=== PATIENT | female | born 1985 | race Caucasian/White ===

== ENCOUNTER 2017-05-22 04:41 | Inpatient (IN) | payer OTHER ==
[~2017-05-22] VITALS: Ht 162.6 cm; Wt 73.0 kg
[2017-05-22 05:34] LABS: ABSOLUTE BASOPHIL COUNT 0 /CUMM (0.0-0.2); ABSOLUTE EOSINOPHIL COUNT 0.2 /CUMM (0.0-0.7); ABSOLUTE GRANULOCYTE CT 8.3 /CUMM (1.4-6.5); ABSOLUTE LYMPH COUNT 2.2 /CUMM (1.2-3.4); ABSOLUTE MONOCYTE COUNT 0.7 /CUMM (0.10-0.60); BASOPHIL % 0.1 % (0.0-2.0); EOSINOPHIL % 1.8 % (0-5); GRANULOCYTE % 73.1 % (42.2-75.2); HEMATOCRIT 32.2 % (37-47); MEAN CORPUSCULAR HGB 30.2 PG (27.0-31.0); MEAN CORPUSCULAR HGB CONC 33.5 G/DL (33.0-37.0); MEAN CORPUSCULAR VOLUME 90.2 FL (81.0-99.0); PLATELET COUNT 143 /CUMM (130-400); RBC DISTRIBUTION WIDTH 13.9 % (11.5-14.5); RED BLOOD CELL CT 3.57 /CUMM (4.20-5.40); WHITE BLOOD CELL COUNT 11.4 /CUMM (4.8-10.8)
--- NOTE | 2017-05-22 07:46 | History & Physical ---
General Information and [facility] MD Statement: I have seen and personally examined LYLA STEWART and documented this H&P. The patient is a 31 year old female at [37] weeks and [5] days gestation who presented with a chief complaint of [SROM]. Source of Information: patient Exam Limitations: no limitations History of Present Illness: 31 year old female at 37 and 5 weeks who presents with spontaneous rupture of membranes at 3 o'clock in the morning. The fetus has been in breech presentation. She is a late transfer of care at 37 and 4 weeks yesterday. Her first visit to the office was yesterday. She just traveled from [place] a few days ago as her is deployed and her mother lives in [place]. She plans to return to [place] June 25. has been remarkable for history of labor. She reports that she was admitted to the hospital at 28 weeks and was observed for 1 week. She received magnesium and steroids. 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 EENTM: Reports: no symptoms. Cardiovascular: Reports: no symptoms. Respiratory: Reports: no symptoms. GI: Reports: no symptoms. Genitourinary: Reports: no symptoms. Musculoskeletal: Reports: no symptoms. Skin: Reports: no symptoms. Neurological/Psychological: Reports: no symptoms. Hematologic/Endocrine: Reports: no symptoms. Immunologic/Allergic: Reports: no symptoms. All Other Systems: Reviewed and Negative Exam & Diagnostic Data Last 24 Hrs of Vital Signs/I&O Intake & Output 05/22 0800 05/22 0000 05/21 1600 Intake Total Output Total Balance Patient 161 lb Weight Obstetric Exam Wgt Gained During : 20 Pelvimetry: na Dilation (cm): 2 Effacement (%): 50 Station: -4 Membranes: SROM Fluid: light meconium Fundal Height (cm): 37 Multiple Gestation? No Contractions: q5min Infant #1 - FHR Baseline: 120 Category: 1 Estimated Weight: 6 pounds Presentation: Breech Patient for Induction? No Physical Exam General Appearance Alert, Oriented X3, Cooperative, No Acute Distress Skin No Rashes, No Breakdown, No Significant Lesion Cardiovascular Regular Rate, Normal S1, Normal S2 Lungs Clear to Auscultation, Normal Air Movement Abdomen Soft, gravid Neurological Normal Gait, Normal Speech, Strength at 5/5 X4 Ext Reproductive (FEMALE) Normal female genitalia Labs Blood Type & Rh: o pos Antibody Screen: neg Hct/Hgb & Platelets #1: 10.1 31.2,122 Hct/Hgb & Platelets #2: na Rubella: imm VDRL #1: neg VDRL #2: Negative HbsAg: Negative HIV #1: Negative HIV #2 Negative 1 Hr P Group B Strep: Positive Initial Ultrasound: 9 weeks and 2 days Anatomy Ultrasound: 20 weeks and 5 days' normal anatomy noted Ultrasound for EFW: 19th percentile, 6 lbs. 1 oz., breech presentation performed yesterday Genetic Testing: CF negative sickle cell negative no other labs noted from previous records and previous practice Last 24 Hrs of Labs/Wilbur: Laboratory Tests 05/22/17 0505: CBC w Diff NO MAN DIFF REQ, RBC 3.57 L, MCV 90.2, MCH 30.2, RDW 13.9, MPV 10.0, Gran % 73.1, Lymphocytes % 19.2 L, Monocytes % 5.8, Eosinophils % 1.8, Basophils % 0.1, Absolute Granulocytes 8.3 H, Absolute Lymphocytes 2.2, Absolute Monocytes 0.7 H, Absolute Eosinophils 0.2, Absolute Basophils 0, PUBS MCHC 33.5 05/22/17 0450: Membrane Rupture POSITIVE Microbiology 05/22 0838 URINE ROUT: Urine Culture - ORD 05/22 0558 URINE ROUT: Urine Culture - COLB Assessment/Plan Assessment/Plan: 31-year-old 2 para 0010 presents at 37 weeks gestation 5 days in early labor and spontaneous rupture of membranes. She was a late transfer of care to our practice yesterday and was noted to be in breech presentation. The patient reports an attempt at external cephalic version but failed with her previous practice. Her care was received in [place]. Ultrasound confirms breech presentation. The patient was counseled on delivery, risks, benefits, alternatives were discussed with the patient prior to proceeding including risk of bleeding, infection, injury to fetus or injury to other organs and need for additional procedures complication occur. The patient stated verbal understanding of all the above and desires to proceed. She is noted to be GBS positive. GBS prophylaxis was ordered. As Ranked By This Provider Problem List: 1. 2. Breech 3. Spontaneous rupture of membranes Core Measures/Miscellaneous Venous Thromboembolism VTE Risk Factors: / VTE Contraindications: No Contraindications VTE Diagnosis: No Beta Clifton Is Beta Clifton a Home Med? No Antibiotics Is Patient on Antibiotics? No
[2017-05-22 09:25] VITALS: BP 107/66
--- NOTE | 2017-05-22 09:30 | Operative Report ---
Operative/Inv Procedure Report Surgery Date: 05/22/17 Name of Procedure: Primary low transverse section Pre-Operative Diagnosis: Term at 37 weeks and 5 days, spontaneous rupture of membranes, breech presentation Post-Operative Diagnosis: Same Estimated Blood Loss: 700 mL Surgeon/Blind Aide: JAVIER LUNA DO Asst: Dr. Kirk Wilkins Anesthesia: general endotracheal tube (spinal with Astramorph), block IV Fluids: 1800 mL Urine Output: Patient voided prior to procedure Drains: Thomas catheter Specimens: None Complications: None Condition: Good Operative Indication: This patient is a 31-year-old 2 para [id number] who presented with breech presentation at 37 weeks and 5 days in early labor. is relatively uncomplicated with exception of labor 28 weeks. Late transfer of care to our practice yesterday. Continues ruptured her membranes at 3:00 this morning. She was counseled on primary low transverse section. She was counseled the risks, benefits, alternatives of surgery including risk of bleeding, infection, injury to fetus or other organs with the need for additional procedure should competition occur. The patient stated verbal understanding of all the above and desires to proceed. She notes that she had failed an external cephalic version with her prior practice. Operative/Procedure Note Note: The patient was taken to the operating room where anesthesia was obtained without difficulty. She was placed in the dorsal supine position with a left lateral tilt. She was then prepared and draped in usual sterile fashion. A skin incision was made with a scalpel and carried down to the fascia with the Bovie. The fascia was incised and the fascial incision was extended bilaterally with sharp dissection. The inferior portion of the fascial incision was tented up with Christian clamps and rectus muscles dissected off with sharp dissection. Once then turned to the superior aspect of the fascial incision which was similarly tented up with Christian clamps and rectus muscles were site itself with sharp dissection. Rectus muscles were midline. Peritoneum was identified and entered gently. Peritoneal incision was then extended superiorly and inferiorly with good visualization of bladder. Bladder blade was inserted. Vesicouterine peritoneum was identified and entered sharply with Metzenbaum scissors. Fascia was then extended bilaterally with sharp dissection and a bladder flap was created sharply. Bladder blade was reinserted. The lower uterine segment was then incised with a scalpel in a transverse fashion. The fetus was noted to be in incomplete breech presentation. The buttocks was delivered, the legs were delivered without difficulty. The infant was delivered up to the level of bilateral scapula. A wet towel was placed around the and with gentle rotation bilateral arms were delivered atraumatically. Nuchal cord was noted. It was noted to be loose. The head was delivered and well flexed manner. Nuchal cord was then reduced. The cord was clamped and cut and was handed to the waiting pediatric team. Placenta was delivered with gentle traction on the cord. The uterus was exteriorized and cleared of all clots and debris. Uterus was were approximated with 0 Vicryl in a running locking fashion. A second imbricating suture of 0 Vicryl was then placed. A single [id number] suture was placed just to the right of midline. Hemostasis was then noted. The uterus is then irrigated posteriorly. She was noted to have normal-appearing bilateral fallopian tubes and ovaries. The uterine incision was reevaluated and noted to be hemostatic. The uterus was then replaced back into the abdomen the gutters were cleared of all clots and debris. It was reevaluated and noted to be hemostatic. The peritoneum was reapproximated 3-0 Polysorb. The rectus muscles were reapproximated inferiorly with 3-0 Polysorb. Fascia was reapproximated with 0 Polysorb in a running fashion. The subcutaneous tissues were reapproximated with 3-0 Polysorb. Subcuticular layer was then placed with 4-0 Biosyn on a Georgi needle. A few additional sutures of 4-0 Biosyn was placed in order to obtain excellent hemostasis. The skin was closed with Dermabond. The patient tolerated the procedure well and was taken to the recovery area in stable condition. Findings: 6 lbs. 9 oz. female infant with scores of 9, 10, 10 delivered at 0809 on 05/22/2017, nuchal cord, breech presentation Discharge Disposition: [facility] CC: JAVIER LUNA DO
[2017-05-23 08:32] LABS: ABSOLUTE BASOPHIL COUNT 0 /CUMM (0.0-0.2); ABSOLUTE EOSINOPHIL COUNT 0.1 /CUMM (0.0-0.7); ABSOLUTE GRANULOCYTE CT 8.5 /CUMM (1.4-6.5); ABSOLUTE LYMPH COUNT 1.6 /CUMM (1.2-3.4); ABSOLUTE MONOCYTE COUNT 0.7 /CUMM (0.10-0.60); BASOPHIL % 0.1 % (0.0-2.0); EOSINOPHIL % 0.5 % (0-5); GRANULOCYTE % 78.4 % (42.2-75.2); HEMATOCRIT 30.6 % (37-47); MEAN CORPUSCULAR HGB CONC 33.4 G/DL (33.0-37.0); MEAN PLATELET VOLUME 9.7 FL (7.4-10.4); PLATELET COUNT 122 /CUMM (130-400); RBC DISTRIBUTION WIDTH 13.8 % (11.5-14.5); WHITE BLOOD CELL COUNT 10.9 /CUMM (4.8-10.8)
--- NOTE | 2017-05-23 10:19 | PN- Post Delivery/GYN ---
Subjective Subjective: 31 yo F POD #1 s/p c/s for breech presentation at 37 wks 5 days. She and baby are well, NAD. Describes some mild incisional pain on ambulation. Denies chest pain, SOB, urinary sxs. Pt has passed flatus and had BM as of last night. OOB and ambulating. Pt is breast feeding w/o issue. Review of Systems Constitutional: Reports: no symptoms. Cardiovascular: Reports: no symptoms. Respiratory: Reports: no symptoms. Gastrointestinal: Reports: no symptoms. Genitourinary: Reports: no symptoms. Objective Last 24 Hrs of Vital Signs/I&O vss Physical Exam General Appearance Alert, Oriented X3, No Acute Distress Abdomen Soft, No Tenderness (incision clean, dry, intact) Current Medications: Current Medications Sig/Vinayak Start time Last Medication Dose Route Stop Time Status Admin Acetaminophen 650 MG Q4P PRN 05/22 0845 AC PO Bisacodyl 10 MG DAILY NEEDED PRN 05/22 0845 AC VA Diphenhydramine HCl 25 MG Q6P PRN 05/22 1100 AC IV Docusate Sodium 100 MG AT BEDTIME PRN 05/22 0845 AC PO Ibuprofen 800 MG Q6P PRN 05/22 0845 AC PO Ketorolac 30 MG Q6P PRN 05/22 1100 AC 05/23 Tromethamine IV 0620 Lactated Ringer's 1,000 ML Q8H 05/22 0845 AC 05/22 IV 1626 Metoclopramide HCl 10 MG Q6P PRN 05/22 1100 AC IV Naloxone HCl 0.2 MG .EVERY 5 MINUTES PRN 05/22 1100 AC IV Oxycodone/ 1 TAB Q4P PRN 05/22 0845 AC Acetaminophen PO Oxycodone/ 2 TAB Q4P PRN 05/22 0845 AC Acetaminophen PO Oxytocin 20 UNITS Q8H 05/22 0845 DC 05/22 Lactated Ringer's 1,000 ML IV 05/22 1644 0900 Last 24 Hrs of Labs/Wilbur: Laboratory Tests 05/23/17 0810: CBC w Diff NO MAN DIFF REQ, RBC 3.40 L, MCV 90.0, MCH 30.0, RDW 13.8, MPV 9.7, Gran % 78.4 H, Lymphocytes % 14.8 L, Monocytes % 6.2, Eosinophils % 0.5, Basophils % 0.1, Absolute Granulocytes 8.5 H, Absolute Lymphocytes 1.6, Absolute Monocytes 0.7 H, Absolute Eosinophils 0.1, Absolute Basophils 0, PUBS MCHC 33.4 Assessment/Plan Assessment/Plan 31 yo F POD #1 s/p c/s for breech presentation w/ no acute problems. Regular ppd checks Monitor incision D/c for 05/25 Problem List: 1. 2. Breech 3. Spontaneous rupture of membranes Attending MD Review Statement Attending Statement Attending MD Statement: examined this patient
--- NOTE | 2017-05-24 10:43 | PN- OBGYN ---
Surgical Brief Attending Note Brief Attending Note: POD#2 pt is resting in bed, no complaints, tolerate diet, void without difficulties. flatus (+) PE: VSS Cv RRR lungs CTA B/L Abdomen: soft, nontender, uterus firm, fundus below umbilicus. incision D/C/I Ext: DCT (-) A/P: 31 yo, s/p PLTCS , POD#2 1. encourage ambulation and 2. pain management as needed 3.RT PP care
[2017-05-25] MEDS ORDERED: PERCOCET 5-3251 EACH PO (09:44)
[2017-05-25] MEDS ORDERED: IBUPROFEN800 M1 PO (09:44)
--- NOTE | 2017-05-25 09:50 | PN- Post Delivery/GYN ---
Subjective Subjective: feeling well Review of Systems Constitutional: Reports: no symptoms. EENTM: Denies: blurred vision, double vision, visual changes. Cardiovascular: Denies: chest pain, orthopena. Respiratory: Denies: cough, short of breath. Gastrointestinal: Denies: diarrhea, nausea, vomiting. Genitourinary: Denies: dysuria. Skin: Reports: rash (puritic papules several widesp). Neurological/Psychological: Denies: anxiety, depressed, headache. Objective Last 24 Hrs of Vital Signs/I&O vss Physical Exam General Appearance Alert, Oriented X3, Cooperative, No Acute Distress Skin several puritic papules over trunk and extremeties Cardiovascular Regular Rate Lungs Clear to Auscultation Abdomen Normal Bowel Sounds, Soft, No Tenderness, fundus firm incision clean and dry Neurological Normal Speech Extremities No Edema Pelvic (FEMALE) lochia serosanganous Assessment/Plan Assessment/Plan pod #3 vss afebrile/ plan d/c home Problem List: 1. Breech Attending MD Review Statement Attending Statement Attending MD Statement: examined this patient, discussed with family, discussed with nursing
== END 2017-05-25 10:20 | DRG 766 ==
LOC: CBCO 04:41 → GNO 05:09
PROVIDERS: Obstetrics & Gynecology; ADMIT Obstetrics & Gynecology
PROC: 10D00Z1 Extraction of Products of Conception, Low, Open Approach (ICD-10-PCS; principal; 2017-05-22)
DX: O32.1XX0 Maternal care for breech presentation, not applicable or unspecified (principal); O69.81X0 Labor and delivery complicated by cord around neck, without compression, not applicable or unspecified; Z3A.37 37 weeks gestation of pregnancy; Z37.0 Single live birth
CPT/HCPCS: GNOS; 36415; 84112; 87086; J0595; J0690; J1885; J7120